=== PATIENT | female | born 1990 | race Caucasian/White ===

== ENCOUNTER 2024-07-07 14:52 | Outpatient (CLI) | payer OTHER | END 2024-07-07 14:54 | disposition home or self-care (01) | LOC: PRENATAL 14:52 | PROVIDERS: ATTEND Obstetrics & Gynecology Maternal & Fetal Medicine | DX: O36.80X0 Pregnancy with inconclusive fetal viability, not applicable or unspecified (principal); Z36.82 Encounter for antenatal screening for nuchal translucency; Z36.9 Encounter for antenatal screening, unspecified; Z14.8 Genetic carrier of other disease; O09.519 Supervision of elderly primigravida, unspecified trimester; Z3A.12 12 weeks gestation of pregnancy ==

== ENCOUNTER 2024-08-24 11:43 | Outpatient (CLI) | payer OTHER | END 2024-08-24 11:47 | disposition home or self-care (01) | LOC: PRENATAL 11:43 | PROVIDERS: ATTEND Obstetrics & Gynecology Maternal & Fetal Medicine | DX: O44.00 Complete placenta previa NOS or without hemorrhage, unspecified trimester (principal); O09.519 Supervision of elderly primigravida, unspecified trimester; Z3A.19 19 weeks gestation of pregnancy ==

== ENCOUNTER 2024-11-16 14:02 | Outpatient (CLI) | payer OTHER ==
[~2024-11-16] VITALS: Ht 157.5 cm; Wt 58.1 kg
[2024-11-16 13:15] VITALS: BP 105/70
[2024-11-16] MEDS ORDERED: RINGERS SOLUTION,LACTATED 1,000 ML IV SCH (14:15)
[2024-11-16 15:11] VITALS: BP 98/62
[2024-11-16] MEDS ORDERED: ECOTRIN81 MG PO (15:11)
[2024-11-16] MEDS ORDERED: DIALYVITE 800-1 EACH PO (15:11)
[2024-11-16] MEDS ORDERED: PRENATAL + DHA1 EAC1 PO (15:11)
[2024-11-16] MEDS ORDERED: IRON325 MG PO (15:12)
[2024-11-16 15:28] VITALS: BP 105/70; BP 98/62
[2024-11-16 17:49] VITALS: BP 104/69
[2024-11-17] VITALS: BP 90/60
[2024-11-17 08:18] VITALS: BP 108/60
== END 2024-11-17 12:35 | disposition home or self-care (01) ==
LOC: OBS/DEL 14:02 → LDR 15:54 → OB/GYN 15:54 → LDR 16:15 → OB/GYN 16:15 → OBS/DEL 11-17 12:35 → OB/GYN 11-17 12:35
PROVIDERS: ATTEND General Practice
DX: O36.8130 Decreased fetal movements, third trimester, not applicable or unspecified (principal); O26.849 Uterine size-date discrepancy, unspecified trimester; O36.8199 Decreased fetal movements, unspecified trimester, other fetus; O09.519 Supervision of elderly primigravida, unspecified trimester; O32.9XX0 Maternal care for malpresentation of fetus, unspecified, not applicable or unspecified; Z3A.31 31 weeks gestation of pregnancy

== ENCOUNTER 2024-12-17 15:45 | Outpatient (CLI) | payer OTHER ==
[~2024-12-17 15:45] MED LIST: DIALYVITE 800-1 EACH PO; ECOTRIN81 MG PO; IRON325 MG PO; PRENATAL + DHA1 EAC1 PO
== END 2024-12-17 15:46 | disposition home or self-care (01) ==
LOC: PRENATAL 15:45
PROVIDERS: ATTEND Obstetrics & Gynecology Maternal & Fetal Medicine
DX: O26.849 Uterine size-date discrepancy, unspecified trimester (principal); O36.8199 Decreased fetal movements, unspecified trimester, other fetus; O09.519 Supervision of elderly primigravida, unspecified trimester; Z3A.36 36 weeks gestation of pregnancy

== ENCOUNTER 2024-12-31 11:47 | Outpatient (CLI) | payer OTHER ==
[2024-12-31 12:37] VITALS: BP 103/68
[2024-12-31] MEDS ORDERED: RINGERS SOLUTION,LACTATED 1,000 ML IV SCH (13:00)
[2024-12-31] MEDS ORDERED: CHOLINE500 M1 (13:28)
[2024-12-31] MEDS ORDERED: CHILDREN'S ASPI81 MG PO (13:29)
[2024-12-31] MEDS ORDERED: FUSION PLUS CA1 EACH PO (13:29)
[2024-12-31 14:18] LABS: URINE BILIRRUBIN Negative (NEGATIVE); URINE BLOOD Negative; URINE COLOR Yellow; URINE GLUCOSE Negative (NEGATIVE); URINE KETONE Negative (NEGATIVE); URINE LEUKOCYTE Small; URINE NITRATE Negative; URINE PROTEIN Negative (NEGATIVE); URINE UROBILINOGEN 0.2 E.U./dl
[2024-12-31 14:21] LABS: HEMATOCRIT 35.2 % (36.0-45.00); HEMOGLOBIN 11.8 g/dL (12.0-15.00); MEAN CELL VOLUME 93.2 fL (80.00-100.00); MEAN CORPUSCULAR HEMOGLOBIN 31.3 pg (27.00-32.0); MEAN CORPUSCULAR HGB CONC 33.6 g/dl (32.0-36.0); PLATELET COUNT 235 K/uL (150-450); RED BLOOD COUNT 3.78 M/uL (4.00-6.00)
[2024-12-31 14:22] LABS: URINE CAST 1.76 uL (0.0-1.40); URINE RBC 2.5 uL (0.0-20.8); URINE WBC 37.9 uL (0.0-23.2)
[2024-12-31 15:09] VITALS: BP 116/79
[2024-12-31 15:41] LABS: URINE APPEARANCE CLEAR
[2024-12-31 17:25] VITALS: BP 116/79
== END 2024-12-31 16:58 | disposition home or self-care (01) ==
LOC: OBS/DEL 11:47 → EDSTATUS 13:34 → OBS/DEL 16:58
PROVIDERS: ATTEND Student in an Organized Health Care Education/Training Program
DX: O36.8330 Maternal care for abnormalities of the fetal heart rate or rhythm, third trimester, not applicable or unspecified (principal); O26.849 Uterine size-date discrepancy, unspecified trimester; O36.8199 Decreased fetal movements, unspecified trimester, other fetus; Z3A.38 38 weeks gestation of pregnancy

== ENCOUNTER 2025-01-16 07:53 | Inpatient (IN) | payer OTHER ==
[2025-01-08 14:37] LABS: PH,URINE 7.5 (5.0-8.0); URINE APPEARANCE Cloudy; URINE BILIRRUBIN Negative (NEGATIVE); URINE BLOOD Negative; URINE COLOR Yellow; URINE GLUCOSE Negative (NEGATIVE); URINE KETONE Negative (NEGATIVE); URINE LEUKOCYTE Moderate; URINE NITRATE Negative; URINE PROTEIN Negative (NEGATIVE); URINE UROBILINOGEN 0.2 E.U./dl
[2025-01-08 14:37] LABS: HEMATOCRIT 34.5 % (36.0-45.00); MEAN CORPUSCULAR HEMOGLOBIN 32.4 pg (27.00-32.0); MEAN CORPUSCULAR HGB CONC 34.8 g/dl (32.0-36.0); PLATELET COUNT 173 K/uL (150-450); RED BLOOD COUNT 3.71 M/uL (4.00-6.00); RED CELL DISTRIBUTION WIDTH 13.4 % (11.5-14.5)
[2025-01-08 14:41] LABS: URINE BACTERIA 6767.3 uL (0.0-1933); URINE RBC 4.2 uL (0.0-20.8); URINE WBC 233.8 uL (0.0-23.2)
[2025-01-08 14:55] LABS: INR < 0.93; PARTIAL THROMBOPLASTIN TIME 24.7 SECONDS (22.0-34.0); PROTHROMBIN TIME 10.2 SECONDS (9.0-11.5)
[2025-01-08 15:02] LABS: ALBUMIN 2.5 gm/dL (3.4-5.0); BILIRUBIN TOTAL 0.34 mg/dL (0.3-1.2); CALCIUM 8.3 mg/dL (8.5-10.1); CREATININE SERUM 1.04 mg/dL (0.55-1.02); GFR 60.3; GLOBULINA 3.4 G/DL (2.4-3.5); POTASSIUM 4.98 mEq/L (3.5-5.1); TOTAL PROTEIN 5.9 gm/dL (6.4-8.2)
[2025-01-08 15:05] LABS: URINE CAST 1.03 uL (0.0-1.40)
[2025-01-08 15:06] LABS: URINE YEAST NEGATIVE /hpf
[~2025-01-16] VITALS: Ht 165.1 cm; Wt 63.0 kg
[2025-01-20 11:08] VITALS: BP 125/76
[2025-01-20] MEDS ORDERED: AMPICILLIN SODIUM 2,000 MG VIAL ONE (12:11)
[2025-01-20] MEDS ORDERED: AMPICILLIN SODIUM 2,000 MG VIAL IV ONE (12:36)
[2025-01-20] MEDS ORDERED: AMPICILLIN SODIUM 1,000 MG VIAL IV SCH (13:00)
[2025-01-20 13:58] LABS: PH,URINE 6.5 (5.0-8.0); URINE APPEARANCE Clear; URINE BILIRRUBIN Negative (NEGATIVE); URINE BLOOD Negative; URINE COLOR Yellow; URINE GLUCOSE Negative (NEGATIVE); URINE KETONE Negative (NEGATIVE); URINE LEUKOCYTE Negative; URINE NITRATE Negative; URINE PROTEIN Negative (NEGATIVE); URINE UROBILINOGEN 0.2 E.U./dl
[2025-01-20 14:00] LABS: URINE BACTERIA 366.8 uL (0.0-1933); URINE EPITHELIAL CELLS 3.3 uL (0.0-38.8); URINE WBC 7.4 uL (0.0-23.2)
[2025-01-20 14:01] LABS: HEMATOCRIT 37.2 % (36.0-45.00); HEMOGLOBIN 12.9 g/dL (12.0-15.00); MEAN CELL VOLUME 93.5 fL (80.00-100.00); MEAN CORPUSCULAR HEMOGLOBIN 32.5 pg (27.00-32.0); MEAN CORPUSCULAR HGB CONC 34.7 g/dl (32.0-36.0); PLATELET COUNT 167 K/uL (150-450); RED BLOOD COUNT 3.98 M/uL (4.00-6.00); RED CELL DISTRIBUTION WIDTH 13.7 % (11.5-14.5)
[2025-01-20 14:02] LABS: URINE CAST 0.14 uL (0.0-1.40)
[2025-01-20 14:50] LABS: ALBUMIN 2.8 gm/dL (3.4-5.0); BILIRUBIN TOTAL 0.35 mg/dL (0.3-1.2); CALCIUM 8.8 mg/dL (8.5-10.1); CREATININE SERUM 0.76 mg/dL (0.55-1.02); GFR 86.6; GLOBULINA 3.7 G/DL (2.4-3.5); POTASSIUM 3.81 mEq/L (3.5-5.1); TOTAL PROTEIN 6.5 gm/dL (6.4-8.2)
[2025-01-20 15:58] VITALS: BP 121/77; O2SAT 100
[2025-01-20 16:03] LABS: INR < 0.93; PARTIAL THROMBOPLASTIN TIME 25.1 SECONDS (22.0-34.0)
[2025-01-20] MEDS ORDERED: MISOPROSTOL 25 MCG TABLET ONE (16:15)
[2025-01-20] MEDS ORDERED: MISOPROSTOL 25 MCG TABLET VAG ONE (16:30)
[2025-01-20 19:03] VITALS: BP 121/77
[2025-01-20 23:27] VITALS: BP 119/84
[2025-01-21] VITALS (12 sets, daily range): BP systolic 89–138; BP diastolic 51–88; O2SAT 100
[2025-01-21] MEDS ORDERED: OXYTOCIN 20 UNITS/500ML RL PIGGYBAG IV ONE (08:12)
[2025-01-21] MEDS ORDERED: OXYTOCIN 500 ML IV SCH (08:45)
[2025-01-21] MEDS ORDERED: MORPHINE SULFATE 4 MG/ML CARTRIDGE IV ONE (13:30)
[2025-01-21] MEDS ORDERED: ERYTHROMYCIN BASE OPHT 1GM EACH TUBE OP ONE ×2 (17:09→22:30)
[2025-01-21] MEDS ORDERED: OXYTOCIN 20 UNITS/1000ML RL PIGGYBAG IV ONE (17:09)
[2025-01-21] MEDS ORDERED: CHLORHEXIDINE GLUCONATE 120 ML BOTTLE TOP ONE (17:10)
[2025-01-21] MEDS ORDERED: LIDOCAINE HCL 1% 10ML VIAL ONE (17:10)
[2025-01-21] MEDS ORDERED: METHYLERGONOVINE MALEATE 0.2 MG/ML AMPUL ONE (21:27)
[2025-01-21] MEDS ORDERED: MISOPROSTOL 100 MCG TABLET ONE ×2 (21:34→21:36)
[2025-01-21] MEDS ORDERED: DOCUSATE SODIUM 100MG CAP PO SCH (22:05)
[2025-01-21] MEDS ORDERED: IBUprofen 800 MG TABLET PO SCH (22:05)
[2025-01-21] MEDS ORDERED: SOD FERRIC GLUC COMPLX/SUCROSE 62.5 MG in 0.9 % SODIUM CHLORIDE 50 ML IV SCH ×2 (22:06→23:12)
[2025-01-21] MEDS ORDERED: BENZOCAINE/MENTHOL 90 ML BOTTLE TOP SCH (22:06)
[2025-01-21] MEDS ORDERED: OXYTOCIN 1,000 ML IV SCH (22:15)
[2025-01-21] MEDS ORDERED: CHLORHEXIDINE GLUCONATE 120 ML BOTTLE TOP SCH (22:15)
[2025-01-21] MEDS ORDERED: METHYLERGONOVINE MALEATE 0.2 MG/ML AMPUL IM STA (22:22)
[2025-01-21] MEDS ORDERED: MISOPROSTOL 100 MCG TABLET RECTAL STA (22:22)
[2025-01-21] MEDS ORDERED: KETOROLAC TROMETHAMINE 30 MG VIAL IV ONE (22:30)
[2025-01-21] MEDS ORDERED: LIDOCAINE HCL 1% 10ML VIAL PERCUT ONE (22:30)
[2025-01-21] MEDS ORDERED: ONDANSETRON HCL 2 MG/ML VIAL IV PRN (22:30)
[2025-01-21] MEDS ORDERED: SOD FERRIC GLUC COMPLX/SUCROSE 62.5 MG/5 ML AMPUL IV ONE (22:49)
[2025-01-21] MEDS ORDERED: ACETAMINOPHEN 500 MG GEL..CAP PO ONE (23:45)
[2025-01-22] VITALS (8 sets, daily range): BP systolic 100–118; BP diastolic 60–80; O2SAT 99–100
[2025-01-22 01:13] LABS: HEMATOCRIT 26.8 % (36.0-45.00); MEAN CELL VOLUME 93.2 fL (80.00-100.00); MEAN CORPUSCULAR HGB CONC 34.2 g/dl (32.0-36.0); PLATELET COUNT 177 K/uL (150-450); RED BLOOD COUNT 2.88 M/uL (4.00-6.00); RED CELL DISTRIBUTION WIDTH 13.6 % (11.5-14.5)
[2025-01-22 01:26] LABS: HEMOGLOBIN 9.2 g/dL (12.0-15.00); MEAN CORPUSCULAR HEMOGLOBIN 31.9 pg (27.00-32.0)
[2025-01-22] MEDS ORDERED: METHYLERGONOVINE MALEATE 0.2 MG/ML AMPUL IM SCH (02:00)
[2025-01-22] MEDS ORDERED: AMPICILLIN SODIUM 1,000 MG VIAL IV SCH (02:00)
[2025-01-22] MEDS ORDERED: IBUprofen 400 MG TABLET PO ONE (08:12)
[2025-01-22] MEDS ORDERED: BENZOCAINE/MENTHOL 90 ML BOTTLE TOP SCH (09:00)
[2025-01-22 09:16] LABS: MEAN CELL VOLUME 93.1 fL (80.00-100.00); MEAN CORPUSCULAR HGB CONC 34.4 g/dl (32.0-36.0); PLATELET COUNT 133 K/uL (150-450); RED BLOOD COUNT 2.28 M/uL (4.00-6.00); RED CELL DISTRIBUTION WIDTH 13.9 % (11.5-14.5)
[2025-01-22 09:40] LABS: HEMATOCRIT 21.3 % (36.0-45.00); HEMOGLOBIN 7.3 g/dL (12.0-15.00)
[2025-01-22] MEDS ORDERED: METHYLERGONOVINE MALEATE 0.2 MG TABLET PO SCH ×2 (14:00)
[2025-01-22] MEDS ORDERED: PIPERACILLIN/TAZOBACTAM SODIUM 3.375 GM in 0.9 % SODIUM CHLORIDE 100 ML IV SCH (18:00)
[2025-01-23 02:23] VITALS: BP 92/64
[2025-01-23 05:43] VITALS: BP 107/67
[2025-01-23 08:20] VITALS: BP 101/67
[2025-01-23 08:35] LABS: HEMATOCRIT 27.6 % (36.0-45.00); MEAN CELL VOLUME 90.6 fL (80.00-100.00); MEAN CORPUSCULAR HEMOGLOBIN 31.1 pg (27.00-32.0); MEAN CORPUSCULAR HGB CONC 34.3 g/dl (32.0-36.0); PLATELET COUNT 133 K/uL (150-450); RED BLOOD COUNT 3.05 M/uL (4.00-6.00); RED CELL DISTRIBUTION WIDTH 14.7 % (11.5-14.5)
[2025-01-23 09:00] LABS: HEMOGLOBIN 9.5 g/dL (12.0-15.00)
[2025-01-23] MEDS ORDERED: COLACE100 MG PO (10:18)
[2025-01-23] MEDS ORDERED: IBUPROFEN800 MG PO (10:18)
== END 2025-01-23 13:07 | disposition home or self-care (01) | DRG 768 ==
LOC: OB/GYN 07:53 → LDR 01-20 10:39 → OB/GYN 01-22 15:46
PROVIDERS: ADMIT Student in an Organized Health Care Education/Training Program; ATTEND Student in an Organized Health Care Education/Training Program
PROC: 3E0P7VZ Introduction of Hormone into Female Reproductive, Via Natural or Artificial Opening (ICD-10-PCS; 2025-01-20)
PROC: 4A1HXCZ Monitoring of Products of Conception, Cardiac Rate, External Approach (ICD-10-PCS; 2025-01-20)
PROC: 10E0XZZ Delivery of Products of Conception, External Approach (ICD-10-PCS; principal; 2025-01-21)
PROC: 0DQR0ZZ Repair Anal Sphincter, Open Approach (ICD-10-PCS; 2025-01-21)
PROC: 3E033VJ Introduction of Other Hormone into Peripheral Vein, Percutaneous Approach (ICD-10-PCS; 2025-01-21)
PROC: 4A033R1 Measurement of Arterial Saturation, Peripheral, Percutaneous Approach (ICD-10-PCS; 2025-01-21)
PROC: 30233N1 Transfusion of Nonautologous Red Blood Cells into Peripheral Vein, Percutaneous Approach (ICD-10-PCS; 2025-01-22)
PROC: B246ZZZ Ultrasonography of Right and Left Heart (ICD-10-PCS; 2025-01-22)
PROC: BB24Y0Z Computerized Tomography (CT Scan) of Bilateral Lungs using Other Contrast, Unenhanced and Enhanced (ICD-10-PCS; 2025-01-22)
DX: O70.21 Third degree perineal laceration during delivery, IIIa (principal); Z37.0 Single live birth; O41.03X0 Oligohydramnios, third trimester, not applicable or unspecified; D62 Acute posthemorrhagic anemia; O72.1 Other immediate postpartum hemorrhage; O99.824 Streptococcus B carrier state complicating childbirth; O26.53 Maternal hypotension syndrome, third trimester; O99.892 Other specified diseases and conditions complicating childbirth; R00.0 Tachycardia, unspecified; O99.02 Anemia complicating childbirth; O67.8 Other intrapartum hemorrhage; Z3A.40 40 weeks gestation of pregnancy
CPT/HCPCS: 71275

== ENCOUNTER → 2025-01-16 | Outpatient (CLI) | payer OTHER ==
[~2025-01-16] MED LIST changes: +CHILDREN'S ASPI81 MG PO; +CHOLINE500 M1; +FUSION PLUS CA1 EACH PO
== END | disposition home or self-care (01) ==
LOC: NST 17:48
PROVIDERS: ATTEND Student in an Organized Health Care Education/Training Program
DX: Z34.83 Encounter for supervision of other normal pregnancy, third trimester (principal)